=== PATIENT | male | born 1955 | race African-American/Black ===

== ENCOUNTER 2017-09-28 11:59 | Observation (INO) ==
[2017-09-28] MEDS ORDERED: ASPIRIN 325 MG TABLET PO STA (12:57)
[2017-09-28] MEDS ORDERED: ENOXAPARIN 100 MG/ML SYRINGE SUBCUT STA (13:30)
[2017-09-28] MEDS ORDERED: ASPIRIN 325 MG TABLET ONE ×2 (13:54→14:04)
[2017-09-28] MEDS ORDERED: ENOXAPARIN 100 MG/ML SYRINGE SUBCUT ONE (13:54)
[2017-09-28 14:39] LABS: Basophils % 0.4 % (0.0-0.8); Eosinophils # 0.1 10*3/uL (0.0-0.87); Eosinophils % 1.7 % (0.00-10.9); Hematocrit 41.4 VOL% (42.0-52.0); Hemoglobin 13.8 GM/DL (14.0-18.0); Immature Granulocytes % 0.1 %; Immature Granulocytes Absolute 0.01 #; Lymphocytes # 3.1 10*3/uL (1.4-4.0); Mean Corpuscular HGB Conc 33.3 GM/DL (32-36); Mean Corpuscular Hemoglobin 28 PG (27-34); Mean Corpuscular Volume 82.8 FL (87-102); Monocytes # 0.8 10*3/uL (0.11-0.8); Monocytes % 11.2 % (1.7-12.7); Neutrophils # 2.9 10*3/uL (1.4-7.4); Neutrophils % 41.6 % (38.7-73.9); Platelet Count 193 T/CUMM (130-400); Red Cell Distribution Width 15.1 % (9.3-17.3)
[2017-09-28 14:48] LABS: INR 1.1; PT Patient Result 11.4 SECS; Partial Thromboplastin Time 29.3 SECS (0-40)
[2017-09-28 15:00] LABS: Albumin 3.8 G/DL (3.4-5.0); Bilirubin,Total 0.5 MG/DL (0.2-1.0); Calcium 8.8 MG/DL (8.5-10.1); Osmolality,Calculated 270.8 MOS/KG (273-304); Potassium 4.1 MMOL/L (3.5-5.1); Total Protein 7.8 G/DL (6.4-8.3)
[2017-09-28] MEDS ORDERED: POTASSIUM CHLORIDE 20 MEQ TABLET PO PRN ×2 (16:19)
[2017-09-28] MEDS ORDERED: MORPHINE 2 MG/1 ML SYRINGE IV PRN (16:19)
[2017-09-28] MEDS ORDERED: ACETAMINOPHEN 325 MG TABLET PO PRN (16:19)
[2017-09-28] MEDS ORDERED: BISACODYL 5 MG TABLET PO PRN (16:19)
[2017-09-28] MEDS ORDERED: MAGNESIUM SULF RIDER 4 GM in PREMIX 1 EACH IV PRN (16:19)
[2017-09-28] MEDS ORDERED: MAGNESIUM SULF RIDER 2 GM in PREMIX 1 EACH IV PRN ×2 (16:19→16:22)
[2017-09-28] MEDS ORDERED: ZALEPLON 5 MG CAPSULE PO PRN (16:19)
[2017-09-28] MEDS ORDERED: ONDANSETRON 4 MG/2 ML VIAL IV PRN (16:19)
[2017-09-28] MEDS ORDERED: MAGNESIUM HYDROXIDE SUSP 30 ML UDCUP PO PRN (16:19)
[2017-09-28] MEDS ORDERED: POTASSIUM CHLORIDE RIDER 10 MEQ in PREMIX 1 EACH IV PRN (16:22)
[2017-09-28] MEDS ORDERED: NITROGLYCERIN SL 0.4 MG TABLET SL PRN (16:24)
[2017-09-28] MEDS: ROSUVASTATIN 20 MG TABLET PO SCH (21:20)
[2017-09-28] MEDS: CARVEDILOL 12.5 MG TABLET PO SCH (21:20)
[2017-09-28] MEDS: NITROGLYCERIN 2% OINT 1 INCH/GM PACK TOP SCH (21:23)
[2017-09-29] MEDS: NITROGLYCERIN 2% OINT 1 INCH/GM PACK TOP SCH ×4 (01:37→18:25)
[2017-09-29] MEDS: SODIUM CHLORIDE 0.45% 1,000 ML IV SCH ×2 (05:20→19:56)
[2017-09-29] MEDS ORDERED: DIAZEPAM 5 MG TABLET PO ONE (06:30)
[2017-09-29] MEDS ORDERED: diphenhydrAMINE CAP 25 MG CAPSULE PO ONE (06:30)
[2017-09-29 08:52] LABS: Basophils % 0.4 % (0.0-0.8); Eosinophils # 0.1 10*3/uL (0.0-0.87); Eosinophils % 1.9 % (0.00-10.9); Hematocrit 40.3 VOL% (42.0-52.0); Hemoglobin 13.3 GM/DL (14.0-18.0); Immature Granulocytes % 0.4 %; Immature Granulocytes Absolute 0.02 #; Lymphocytes # 2.4 10*3/uL (1.4-4.0); Lymphocytes % 45.4 % (21.2-54.2); Mean Corpuscular Hemoglobin 27 PG (27-34); Mean Corpuscular Volume 82.2 FL (87-102); Mean Platelet Volume 9.2 FL (9.6-12.0); Monocytes # 0.6 10*3/uL (0.11-0.8); Monocytes % 10.7 % (1.7-12.7); Neutrophils # 2.2 10*3/uL (1.4-7.4); Neutrophils % 41.2 % (38.7-73.9); Platelet Count 203 T/CUMM (130-400); White Blood Count 5.2 T/CUMM (4-12)
[2017-09-29] MEDS ORDERED: FLUTICASONE 50 MCG NASAL SPRAY 16 GM BOTTLE BOTH NARES SCH (09:00)
[2017-09-29] MEDS ORDERED: PANTOPRAZOLE 40 MG TABLET PO SCH (09:00)
[2017-09-29] MEDS ORDERED: CLOPIDOGREL 75 MG TABLET PO SCH (09:00)
[2017-09-29] MEDS: CARVEDILOL 12.5 MG TABLET PO SCH ×2 (10:22→18:24)
[2017-09-29] MEDS ORDERED: LIDOCAINE 1% 20 ML VIAL ONE (12:21)
[2017-09-29] MEDS ORDERED: HEPARIN/NACL 0.9% 2 UNITS/ML 2,000 ML IV ONE (12:21)
[2017-09-29] MEDS ORDERED: fentaNYL 100 MCG/2 ML VIAL ONE (12:39)
[2017-09-29] MEDS ORDERED: MIDAZOLAM 2 MG/2 ML VIAL ONE ×2 (12:39→12:53)
[2017-09-29] MEDS ORDERED: ACETAMINOPHEN/CODEINE 300-30 MG TABLET PO PRN (13:19)
[2017-09-29 19:56] VITALS: BP 141/80
[2017-09-29] MEDS: ROSUVASTATIN 20 MG TABLET PO SCH (20:35)
[2017-09-30] MEDS ORDERED: TAMSULOSIN 0.4 MG CAPSULE PO SCH (09:00)
== END 2017-09-29 21:20 | disposition home or self-care (01) ==
LOC: N.EDINP 11:59 → N.ED 11:59 → N.EDINP 19:25 → N.TELES 19:35
PROVIDERS: ADMIT Internal Medicine Cardiovascular Disease; ATTEND Internal Medicine Cardiovascular Disease
PROC: CLCCHCL (ICD-10-PCS; 2017-09-29 12:15)